=== PATIENT | female | born 1955 | race Caucasian/White ===

== ENCOUNTER 2021-07-08 09:17 | Day surgery (SDC) | payer MEDICARE ==
[~2021-07-08] VITALS: Ht 149.9 cm; Wt 69.4 kg
[~2021-07-08 09:17] MED LIST: ALENDRONAT70 MG/751 PO; CLOBETASOL EMOL15 G1; LOSA25 PO; OXYB5 PO; [UNRECOGNIZED DRUG - CODE] PO
[2021-07-08] MEDS ORDERED: DULO60 PO (10:13)
--- NOTE | 2021-07-08 10:37 | NUR ---
07/08/21 John Moseley BUPIVACAINE 0.5% 30 MLS MIXED W/ EPI 0.15 ML PER ORDER TO MAKE BUPIVACAINE 0.5% 1:200,000. BUPIVACAINE 0.5% 1:200,000 MIXED W/ LIDOCAINE 1% 1:1 FOR INJECTION AT OPSITE BY DR PAULA.
== END 2021-07-08 11:26 | disposition home or self-care (01) ==
LOC: ORSCSDS 09:17
PROVIDERS: Orthopaedic Surgery
PROC: 0LN80ZZ Release Left Hand Tendon, Open Approach (ICD-10-PCS; principal; 2021-07-08 12:00)
DX: M65.332 Trigger finger, left middle finger (principal); I10 Essential (primary) hypertension; G47.33 Obstructive sleep apnea (adult) (pediatric); Z79.899 Other long term (current) drug therapy
CPT/HCPCS: J0171; J0690; J2250; J2704; J3010